=== PATIENT | female | born 1935 | race Hispanic/Latino ===

== ENCOUNTER 2018-02-11 06:17 | Day surgery (SDC) | payer OTHER ==
[2018-02-08 12:21] LABS: BASOPHILS % (AUTO) 0.9 % (0.0-5.0); EOSINOPHILS % (AUTO) 1.8 % (0.0-8.0); HEMATOCRIT 38.1 % (36-48); LYMPHOCYTES % (AUTO) 26.4 % (21.0-51.0); MEAN CORPUSCULAR HGB CONC 33.8 g/dL (32.0-36.0); MEAN CORPUSCULAR VOLUME 91.8 fL (79-99); MONOCYTES % (AUTO) 8.2 % (3.0-13.0); NEUTROPHILS % (AUTO) 62.7 % (40.0-77.0); PLATELET COUNT (AUTO) 226 K/uL (130-400); RED BLOOD CELL COUNT(AUTO) 4.15 MIL/uL (4.00-5.50); RED CELL DISTRIBUTION WIDTH 13.9 % (11.0-15.5); WHITE BLOOD COUNT (AUTO) 7.1 K/uL (4.8-10.8)
[2018-02-08 12:28] LABS: POTASSIUM 3.9 mmol/L (3.5-5.1)
[2018-02-08 12:44] LABS: INR 1.27 (0.85-1.15); PROTHROMBIN TIME 13.3 SEC (9.6-11.6)
[2018-02-08 12:46] VITALS: BP 168/70
[2018-02-11] VITALS (10 sets, daily range): BP systolic 104–175; BP diastolic 45–67
[~2018-02-11] VITALS: Ht 144.8 cm; Wt 64.2 kg
[~2018-02-11 06:17] MED LIST: ATOR40TA71 PO; CHOL200059 PO; LOSA1TAB42 PO; METO1TAB41 PO; MULT-1203 PO; RIVA20TA PO
[2018-02-11] MEDS ORDERED: SODIUM CHLORIDE 0.9% 1000ML 1,000 ML IV ONE (07:43)
[2018-02-11] MEDS ORDERED: BUPIVACAINE/PF 0.25% 10ML VIAL IJ ONE (09:29)
[2018-02-11] MEDS ORDERED: LIDOCAINE HCL 1% MDV 50ML VIAL ONE ×2 (09:29→10:50)
[2018-02-11] MEDS ORDERED: CEFAZOLIN SODIUM 1 GM VIAL ONE ×2 (09:29→10:51)
[2018-02-11] MEDS ORDERED: BUPIVACAINE/PF 0.25% 50ML VIAL IJ ONE (10:50)
[2018-02-11] MEDS ORDERED: MEPERIDINE-PF 25 MG/ML SYG ONE ×2 (12:15→12:21)
[2018-02-11] MEDS ORDERED: MIDAZOLAM HCL 1 MG/ML 2ML VIAL ONE ×2 (12:15→12:21)
[2018-02-11] MEDS ORDERED: OCTYL 2-CYANOACRYLATE 1 EACH TP ONE (12:39)
[2018-02-11] MEDS ORDERED: ONDANSETRON HCL 4 MG/2 ML VIAL IV PRN (13:15)
[2018-02-11] MEDS ORDERED: ACETAMINOPHEN 325 MG TAB PO PRN ×2 (13:15)
== END 2018-02-11 17:15 | disposition home or self-care (01) ==
LOC: DAH 06:17
PROVIDERS: ATTEND Internal Medicine Cardiovascular Disease
DX: R55 Syncope and collapse (principal); I48.0 Paroxysmal atrial fibrillation; I10 Essential (primary) hypertension; E78.5 Hyperlipidemia, unspecified; Z79.899 Other long term (current) drug therapy
CPT/HCPCS: 33282; 36415; 80048; 85025; 85610; 85730; 93005; 99156; 99157; A4606; C1764; J0690; J2175 ×2; J2250 ×2; J3490 ×2; J7030

== ENCOUNTER 2018-09-03 07:53 | Observation (INO) | payer OTHER ==
[2018-08-30 15:20] VITALS: BP 146/62
[2018-08-30 15:48] LABS: BASOPHILS % (AUTO) 0.4 % (0.0-5.0); EOSINOPHILS % (AUTO) 1.7 % (0.0-8.0); HEMATOCRIT 40.3 % (36-48); LYMPHOCYTES % (AUTO) 23.8 % (21.0-51.0); MEAN CORPUSCULAR HEMOGLOBIN 30.4 pg (27.0-33.0); MEAN CORPUSCULAR VOLUME 92.1 fL (79-99); MONOCYTES % (AUTO) 10.3 % (3.0-13.0); NEUTROPHILS % (AUTO) 63.8 % (40.0-77.0); PLATELET COUNT (AUTO) 232 K/uL (130-400); POTASSIUM 3.3 mmol/L (3.5-5.1); RED BLOOD CELL COUNT(AUTO) 4.38 MIL/uL (4.00-5.50); RED CELL DISTRIBUTION WIDTH 13.6 % (11.0-15.5); WHITE BLOOD COUNT (AUTO) 8.8 K/uL (4.8-10.8)
[2018-08-30 15:51] LABS: INR 1.18 (0.85-1.15); PARTIAL THROMBOPLASTIN TIME 39.3 SEC (26.3-35.5); PROTHROMBIN TIME 12.4 SEC (9.6-11.6)
--- NOTE | 2018-08-30 15:55 | NUR ---
NOTE PT STATES THAT SHE WANTS HER LOOP RECORDER REMOVED THE SAME DAY OF PACEMAKER PLACEMENT, STATED THAT SHE HAD DISCUSSED IT WITH DR. CARUSO AND JARON AND THEY HAD AGREED TO DO IT. CALLED SONU AT THE [facility], STATED SHE DOES NOT HAVE ANY NOTES WITH REGARDS TO THE LOOP RECORDER BUT SHE WILL WORK ON IT ON SUNDAY. WE WILL CALL HER/[facility] BACK ON SUNDAY TO GET ANY UPDATES ON ORDERS, H&P. Addendum: 08/30/18 at 5458 by SEBASTIAN DAN RN RN PT WANTS US TO CALL [facility] FOR UPDATES.
--- NOTE | 2018-09-02 09:55 | NUR ---
labs abnormal labs reported to Andrea DHILLON. NO further orders given. ok to proceed with planned procedure
[~2018-09-03] VITALS: Ht 144.8 cm; Wt 64.9 kg
[2018-09-03] VITALS (12 sets, daily range): BP systolic 99–144; BP diastolic 57–94
[~2018-09-03 07:53] MED LIST changes: -CHOL200059 PO; -LOSA1TAB42 PO; +LOSA1TAB54 PO; -METO1TAB41 PO; +METO25TA6 PO; -MULT-1203 PO; +SODIUM CHLORIDE 0.9% 1000ML 1,000 ML IV SCH
--- NOTE | 2018-09-03 09:34 | NUR ---
ASSESSMENT PT HERE FOR PROCEDURE. SON AT BEDSIDE. DENIES ANY COMPLAINTS AT THIS TIME.
[2018-09-03] MEDS ORDERED: MEPERIDINE-PF 25 MG/ML SYG ONE ×3 (13:18→13:59)
[2018-09-03] MEDS ORDERED: BUPIVACAINE/PF 0.25% 30ML VIAL IJ ONE ×2 (13:18→14:01)
[2018-09-03] MEDS ORDERED: CEFAZOLIN SODIUM 1 GM VIAL ONE (13:18)
[2018-09-03] MEDS ORDERED: LIDOCAINE HCL 1% MDV 50ML VIAL ONE ×2 (13:19→14:02)
[2018-09-03] MEDS ORDERED: MIDAZOLAM HCL 1 MG/ML 2ML VIAL ONE ×3 (13:19→13:59)
[2018-09-03] MEDS ORDERED: OCTYL 2-CYANOACRYLATE 1 EACH TP ONE (14:39)
[2018-09-03] MEDS ORDERED: ONDANSETRON HCL 4 MG/2 ML VIAL IV PRN (15:15)
[2018-09-03] MEDS ORDERED: ACETAMINOPHEN-CODEINE 300/30MG TAB PO PRN ×2 (15:15)
[2018-09-03] MEDS ORDERED: ATORVASTATIN CALCIUM 40 MG TABLET PO SCH (21:00)
[2018-09-03] MEDS: CEFAZOLIN SODIUM 1 GM VIAL IVP SCH (21:15)
[2018-09-04 03:18] VITALS: BP 127/73
[2018-09-04] MEDS: CEFAZOLIN SODIUM 1 GM VIAL IVP SCH (04:19)
[2018-09-04 07:27] VITALS: BP 116/62
[2018-09-04] MEDS ORDERED: LOSA1TAB37 PO (09:12)
[2018-09-04] MEDS ORDERED: METO50TA9 PO (09:12)
[2018-09-04] MEDS ORDERED: DOXY100C2 PO (09:12)
[2018-09-04 11:06] VITALS: BP 119/63
== END 2018-09-04 14:10 | disposition home or self-care (01) ==
LOC: DAH 07:53 → DAHIP 07:54 → 2DH 15:54
PROVIDERS: ADMIT Internal Medicine; ATTEND Internal Medicine
DX: I49.5 Sick sinus syndrome (principal); D68.59 Other primary thrombophilia; E78.5 Hyperlipidemia, unspecified; G30.9 Alzheimer's disease, unspecified; I10 Essential (primary) hypertension; I48.0 Paroxysmal atrial fibrillation; J44.9 Chronic obstructive pulmonary disease, unspecified; F02.80 Dementia in other diseases classified elsewhere, unspecified severity, without behavioral disturbance, psychotic disturbance, mood disturbance, and anxiety; Z90.710 Acquired absence of both cervix and uterus; Z95.0 Presence of cardiac pacemaker; Z79.899 Other long term (current) drug therapy; Z83.3 Family history of diabetes mellitus; Z82.49 Family history of ischemic heart disease and other diseases of the circulatory system; Z98.41 Cataract extraction status, right eye; Z98.42 Cataract extraction status, left eye
CPT/HCPCS: 33208; 33286; 36415; 71046; 80048; 85025; 85610; 85730; 93005; 96374; 96376; A4218 ×2; A4606; C1785; C1894; C1898 ×2; G0378 ×22; J0690 ×3; J2175 ×3; J2250 ×3; J3490 ×4; J7030; 99156; 99157

== ENCOUNTER → 2022-11-06 | Outpatient (CLI) | payer OTHER ==
[~2022-11-06] MED LIST changes: +DOXY100C5 PO; +LOSA1TAB37 PO; -LOSA1TAB54 PO; -METO25TA6 PO; +METO50TA9 PO; -SODIUM CHLORIDE 0.9% 1000ML 1,000 ML IV SCH
[2022-11-06 09:51] LABS: ALBUMIN 3.1 g/dL (3.5-5.0); CREATININE 1.2 mg/dL (0.5-1.5); POTASSIUM 3.2 mmol/L (3.5-5.1); TOTAL PROTEIN, SERUM 6.8 g/dL (6.0-8.3)
== END | disposition home or self-care (01) ==
LOC: LAB 09:02
PROVIDERS: ATTEND Internal Medicine Cardiovascular Disease
DX: I48.0 Paroxysmal atrial fibrillation (principal)
CPT/HCPCS: 36415; 80053